=== PATIENT | female | born 1990 | race Caucasian/White ===

== ENCOUNTER 2016-11-26 13:45 | Emergency (ER) | payer MEDICAID ==
[~2016-11-26 13:45] MED LIST: COLACE-DPS100 MG PO; IRON SUPPLEMEN325 MG PO; MOTRIN-DPS800 MG PO; NIPPLECREAM TP; PERCOCET 5 DPS1 TAB PO; PRENATAL VIT1 TAB PO
--- NOTE | 2016-11-28 19:25 | ER ---
ADMIT: 11/26/2016 RM/LOC: ER [facility] MR#: [id number] [id number] DANIELLE GOMEZ [place] [address] Emergency Room Report SEX: F AGE: 26 : 1990 DATE: 11/26/2016 ADDENDUM: CHIEF COMPLAINT: Vomiting and diarrhea. HISTORY OF PRESENT ILLNESS: This is a 26-year-old female who had vomiting and diarrhea since 4 a.m. She vomited once. She has had multiple bouts of diarrhea. was concerned, so brought her into the ER. She describes her abdominal pain as cramping intermittently. Rates it at a 5/10 when it is cramping. She was slightly tachycardic here, I told her she could be borderline a little bit dry. I gave her the option of starting an IV or going home and having some Zofran for nausea. At this time, she actually feels better after just receiving Zofran here in the emergency room that she wants to try to go home and just use Zofran and push fluids on her own. I told her to return if worsen. CLINICAL IMPRESSION: Vomiting and diarrhea. MARSHAL Reece / Leopoldo Russell MD / dilshadl JOB #: [id number] CC: Leopoldo Russell MD, Attending Physician
== END 2016-11-26 15:00 | disposition home or self-care (01) ==
LOC: ER 13:45
DX: R11.10 Vomiting, unspecified (principal); R19.7 Diarrhea, unspecified